=== PATIENT | female | born 1970 | race Caucasian/White ===

== ENCOUNTER 2018-06-01 06:27 | Day surgery (SDC) | payer OTHER ==
[2018-06-01] MEDS ORDERED: BUPIVACAINE 0.5% (SDV) 30 ML INJ (06:40)
[2018-06-01] MEDS ORDERED: LIDOCAINE 2% (MDV) 20 ML INJ (06:40)
[2018-06-01] MEDS ORDERED: SUCCINYLCHOLINE CHLORIDE 100 MG/5 ML SYG IV (07:00)
[2018-06-01] MEDS ORDERED: SOD CHLORIDE 0.9% 1,000 ML IV (07:00)
[2018-06-01] MEDS ORDERED: LIDOCAINE 2% (SDV) 5 ML INJ (08:27)
[2018-06-01] MEDS ORDERED: PROPOFOL 20 ML (08:27)
[2018-06-01] MEDS ORDERED: MIDAZOLAM 1 MG/ML 2 ML INJ (08:28)
[2018-06-01] MEDS ORDERED: FENTAnyl 50 MCG/ML VIAL IV (08:30)
[2018-06-01] MEDS ORDERED: DIPHENHYDRAMINE 50 MG INJ IV (08:30)
[2018-06-01] MEDS ORDERED: OXYCODONE/ACETAMINOPHEN (5/325) TAB PO (08:30)
[2018-06-01] MEDS ORDERED: MEPERIDINE 25 MG INJ IV (08:30)
[2018-06-01] MEDS ORDERED: CEFAZOLIN 1 GM INJ (08:52)
[2018-06-01] MEDS ORDERED: FENTAnyl 50 MCG/ML VIAL (08:56)
[2018-06-01] MEDS ORDERED: DEXAMETHASONE 4 MG/ML 1 ML INJ (09:16)
[2018-06-01] MEDS ORDERED: METOCLOPRAMIDE 10 MG INJ (09:16)
[2018-06-01] MEDS ORDERED: ONDANSETRON 4 MG INJ (09:16)
[2018-06-01] MEDS ORDERED: FAMOTIDINE 20 MG INJ (09:16)
[2018-06-01] MEDS: BUPIVACAINE 0.25% (MPF) 30 ML INJ (09:24)
[2018-06-01] MEDS: HYDROCODONE/APAP (5/325) TAB PO (09:30)
[2018-06-01] MEDS: ONDANSETRON 4 MG INJ IV (09:46)
[2018-06-01] MEDS: HYDROmorphONE 1 MG/5 ML IV SYRINGE IV (09:47)
[2018-06-01] MEDS: CEFAZOLIN 2 GM/50 ML (PMX) 50 ML IVPB (09:49)
== END 2018-06-01 11:43 | disposition home or self-care (01) ==
LOC: SDS 06:27
DX: D17.1 Benign lipomatous neoplasm of skin and subcutaneous tissue of trunk (principal); E66.9 Obesity, unspecified; Z68.36 Body mass index [BMI] 36.0-36.9, adult
CPT/HCPCS: 14001; 84703; 88307